=== PATIENT | male | born 1960 | race Caucasian/White ===

== ENCOUNTER 2019-01-24 14:39 | Emergency (ER) | payer OTHER ==
[~2019-01-24] VITALS: Ht 172.7 cm; Wt 89.4 kg
[2019-01-24 14:47] VITALS: BP 149/79
[2019-01-24] MEDS ORDERED: BACTRIM DS TAB1 EACH PO ×2 (15:12→15:13)
== END 2019-01-24 15:22 | disposition home or self-care (01) ==
LOC: M.ERS 14:39
DX: L02.11 Cutaneous abscess of neck (principal); Z88.5 Allergy status to narcotic agent